=== PATIENT | female | born 1935 | race Caucasian/White ===

== ENCOUNTER → 2016-11-14 | Outpatient (CLI) | payer OTHER ==
--- NOTE | 2016-11-14 10:29 | DI ---
XR WRIST COMPLETE MIN 3VW,11/14/2016 8:36 AM: Clinical History: Right wrist pain Previous Exam: None at this facility. Findings: 3 views of the right wrist are obtained, and demonstrate mild diffuse osteopenia. There are advanced degenerative changes involving the right first carpometacarpal joint with osteophy te formation. Surrounding soft tissues are unremarkable. 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
== END ==
LOC: MOB LAB 08:38
DX: M25.531 Pain in right wrist (principal); M19.031 Primary osteoarthritis, right wrist
CPT/HCPCS: 73110; 99212; G0463

== ENCOUNTER → 2016-11-16 | Outpatient (CLI) | payer OTHER ==
[2016-11-16 13:05] LABS: HEMATOCRIT 35.7 % (37.0-47.0); MEAN CORPUSCULAR HEMOGLOBIN 29.6 PG (27-31); MEAN CORPUSCULAR HGB CONC 30.8 g/dL (33-37); RED BLOOD COUNT 3.72 10^6/uL (4.20-5.40)
[2016-11-16 13:16] LABS: BILIRUBIN,URINE NEGATIVE (NEG); COLOR,URINE YELLOW; GLUCOSE, URINE (UA) NEGATIVE (NEG); NITRATE,URINE NEGATIVE (NEG); OCCULT BLOOD,URINE NEGATIVE (NEG); PROTEIN,URINE NEGATIVE (NEG); UROBILINOGEN,URINE 0.2 EU/dL (0.2)
[2016-11-16 13:42] LABS: CLARITY,URINE CLEAR (CLEAR)
[2016-11-16 13:44] LABS: C-REACTIVE PROTEIN 8.6 mg/dL (0.0-0.9); URIC ACID 6.5 mg/dl (2.5-7.5)
[2016-11-16 13:45] LABS: URINE SAMPLE TYPE CLEAN CATCH URINE
[2016-11-17 13:22] LABS: RHEUMATOID FACTOR <15 IU/mL (<15)
== END ==
LOC: LAB 12:39
PROVIDERS: ATTEND Orthopaedic Surgery Hand Surgery
DX: R30.0 Dysuria (principal); M19.031 Primary osteoarthritis, right wrist
CPT/HCPCS: 36415; 81003; 84550; 85027; 85652; 86038; 86140; 86431

== ENCOUNTER → 2016-12-13 | Outpatient (CLI) | payer OTHER ==
[2016-12-13 10:19] LABS: HEMATOCRIT 35.5 % (37.0-47.0); HEMOGLOBIN 11.1 g/dL (12.0-16.0); MEAN CORPUSCULAR HEMOGLOBIN 29.1 PG (27-31); MEAN CORPUSCULAR HGB CONC 31.3 g/dL (33-37); MEAN CORPUSCULAR VOLUME 92.9 FL (81-99); MEAN PLATELET VOLUME 10.6 FL (7.4-12.2); RED BLOOD COUNT 3.82 10^6/uL (4.20-5.40)
[2016-12-13 10:59] LABS: BUN/CREATININE RATIO 23.33 (6-20); CALCIUM 9.2 mg/dL (8.7-10.7)
== END ==
LOC: LAB 09:55
PROVIDERS: ATTEND Physician Assistant Medical
DX: I25.10 Atherosclerotic heart disease of native coronary artery without angina pectoris (principal)
CPT/HCPCS: 36415; 80048; 85027

== ENCOUNTER → 2016-12-15 | Outpatient (CLI) | payer OTHER | LOC: MMPC 11:11 | PROVIDERS: ATTEND Nurse Practitioner | DX: I42.9 Cardiomyopathy, unspecified (principal); I50.9 Heart failure, unspecified; M15.9 Polyosteoarthritis, unspecified; E11.9 Type 2 diabetes mellitus without complications; Z95.5 Presence of coronary angioplasty implant and graft | CPT/HCPCS: 99214; G0463 ==

== ENCOUNTER → 2017-01-15 | Outpatient (CLI) | payer OTHER | LOC: LAB 15:01 | PROVIDERS: ATTEND Specialist | DX: I50.20 Unspecified systolic (congestive) heart failure (principal) | CPT/HCPCS: 36415; 84132 ==

== ENCOUNTER → 2017-01-25 | Outpatient (CLI) | payer OTHER ==
[2017-01-25 08:22] LABS: CHOL/HDL RATIO 3.19 RATIO (0-4.0); LDL CHOLESTEROL,CALCULATED 103.6 mg/dL; SERUM ALBUMIN 4.1 g/dL (3.5-4.8)
== END ==
LOC: LAB 07:24
PROVIDERS: ATTEND Physician Assistant Medical
DX: I25.10 Atherosclerotic heart disease of native coronary artery without angina pectoris (principal)
CPT/HCPCS: 36415; 80061; 80076

== ENCOUNTER → 2017-02-19 | Outpatient (CLI) | payer OTHER ==
[2017-02-19 13:11] LABS: FREE T4 (FREE THYROXINE) 1.71 ng/dL (0.93-1.71)
== END ==
LOC: LAB 11:19
PROVIDERS: ATTEND Nurse Practitioner
DX: E03.9 Hypothyroidism, unspecified (principal)
CPT/HCPCS: 36415; 84439; 84443